=== PATIENT | female | born 1965 | race Caucasian/White ===

== ENCOUNTER 2024-10-19 09:27 | Emergency (ER) | payer OTHER, SELFPAY ==
[2024-10-19 09:42] VITALS: BP 109/67
[2024-10-19 10:02] LABS: % Basophils 0.4 % (0-2); % Eosinophils 0.6 % (0-6); % Immature Granulocytes 0.2 % (0-0.5); % Monocytes 6.8 % (1.7-9.3); Absolute Eosinophils 0.1 10^3/uL (0-0.7); Absolute Lymphocytes 2.2 10^3/uL (1.2-3.4); Absolute Monocytes 0.6 10^3/uL (0.1-0.6); Hematocrit 40.9 % (37.0-47.0); Hemoglobin 13.7 g/dL (12.0-16.0); Mean Corp Hgb Conc. 33.5 g/dL (33.0-37.0); Mean Corpuscular Hgb 28.6 pg (27.0-31.0); Mean Corpuscular Volume 85.4 fL (81.0-99.0); Mean Platelet Volume 9.2 fL (7.4-10.4); Nucleated Red Blood Cells % 0 %; Platelet Count 278 10^3/uL (130-400); Red Blood Cell Count 4.79 10^6/uL (4.20-5.40); Red Cell Dist. Width 13.2 % (11.5-14.5); White Blood Cell Count 8.9 10^3/uL (4.8-10.8)
[2024-10-19 10:17] LABS: Urine Albumin 2+ (Neg - Trace); Urine Bilirubin Negative (Negative); Urine Character Clear (Clear); Urine Color Yellow; Urine Glucose Negative (Negative); Urine Ketone 1+ (Negative); Urine Leukocyte 3+ (Negative); Urine Nitrite Negative (Negative); Urine Occult Blood 3+ (Negative); Urine Urobilinogen Negative (Neg - 1+)
[2024-10-19 10:18] LABS: ALT (SGPT) 24 U/L (0-35); AST (SGOT) 23 U/L (14-36); Albumin 4.3 g/dl (3.5-5.0); Alkaline Phosphatase 65 U/L (38-126); Blood Urea Nitrogen 22 mg/dl (7-17); Calcium 9.9 mg/dl (8.4-10.2); Carbon Dioxide 32 mmol/L (22-30); Chloride 104 mmol/L (98-107); Glucose 94 mg/dl (70-99); Potassium 4.2 mmol/L (3.5-5.1); Sodium 140 mmol/L (135-145); Total Bilirubin 0.6 mg/dl (0.2-1.3); Total Protein 7.3 g/dl (6.3-8.2); eGFR > 60.00
--- NOTE | 2024-10-19 10:44 | ED.GENMED ---
History of Present Illness
General
Chief Complaint: Urinary Symptoms
Source: patient
Exam Limitations: none
Time Seen by Provider: 10/19/24 10:34
History of Present Illness
History of Present Illness:
Patient treated for a UTI at the end of August. Was on Bactrim. Apparently the culture showed no sensitivity to the sulfas and was changed to Macrodantin. Finished this a week ago. Had 1 tablet left however. Recurring burning urgency frequency
started early this morning. However also developed some vague bilateral lower back pain. No nausea vomiting melena. Had some transient nausea earlier. No fever chills now but had some transient chills earlier. Did take 1 Macrodantin this
morning that she had leftover
Past History
Past History
ED Past Medical History: Other (UTI/kidney stones)
ED Past Surgical History: None
Review of Systems
Review of Systems
All Other Systems: Not applicable
Constitutional: Denies fever
ABD/GI: Reports no symptoms
Phy Exam
Physical Exam
Physical Exam:
GENERAL: Alert and oriented in no apparent distress
EYE: Orbits normal.
NECK: Supple
CARDIAC: Regular rate and rhythm without any obvious murmurs.
LUNGS: Clear breath sounds,normal
ABDOMEN: Soft, without focal tenderness or distention. No CVA tenderness
NEUROLOGICAL: Alert and oriented , grossly non-focal
SKIN: Warm and dry, no rash or lesion, no discoloration, skin intact.
MUSCULOSKELETAL: No edema,no deformity.Good color. Patient points to her lower back bilaterally more than over the costovertebral angle.
PSYCH: Normal and appropriate interaction.
Course
Orders/Labs/Results
Orders:
Orders
10/19/24 09:54
Complete Blood Count/With Diff Urgent
Comprehensive Metabolic Panel Urgent
Urinalysis Reflex To Culture Urgent
Date Specimen was Collected: 10/19/24
Time Specimen was Collected: 09:42
Urine Microscopic Reflex Cult Urgent
Urine Culture Urgent
SALAZAR Source: U
Specimen Description:
Date Specimen was Collected: 10/19/24
Time Specimen was Collected: 09:42
10/19/24 10:34
CT Abd/pel Without Iv Or Oral Urgent
Comment:
Reason For Exam: Back pain/recurrent UTI
Abnormal Lab Results
10/19/24
09:54
Carbon Dioxide 32 H mmol/L
(22-30)
BUN 22 H mg/dl
(7-17)
Urine Ketones 1+ A
(Negative)
Ur Occult Blood Reflex 3+ A
(Negative)
Leukocyte Esterase Rfl 3+ A
(Negative)
Urine RBC 11-15 A /HPF
(0-2)
Urine WBC (Reflex) >100 A /HPF
(0-5)
Urine Bacteria (Reflex) Few A
(Negative)
Urine Albumin (Reflex) 2+ A
(Neg - Trace)
10/19/24 09:54
10/19/24 09:54
Vital Signs
Initial and Last Documented VS:
Initial Vital Signs
Temp Pulse Resp BP Pulse Ox
98.2 F 71 18 109/67 95
10/19/24 09:42 10/19/24 09:42 10/19/24 09:42 10/19/24 09:42 10/19/24 09:42
Last Documented Vital Signs
Temp Pulse Resp BP Pulse Ox
98.2 F 71 18 109/67 95
10/19/24 09:42 10/19/24 09:42 10/19/24 09:42 10/19/24 09:42 10/19/24 09:42
MDM/Problems Addressed
Differential Diagnosis Includes:
Recurrent UTI. Will check sensitivities. Check CT scan for obstructing kidney stone. Clinically nontoxic and stable.
*Radiology
Radiology exam reviewed: radiology read reviewed (No acute findings on CT)
*Pulse Oximetry
Patient hypoxic: no
*Critical Care Note
Total Time (30-74mins, 75-104mins- exclusive of procedures): Not Applicable
Update Note
Update Note:
Patient nontoxic in no distress. No acute findings on labs and CT. Your urine remains positive. Will cover for UTI/early pyelonephritis. Clinically very nontoxic. Sensitive to Cipro. Enterococcus on her previous infection. There may be few
bacteria because she took a nitrofurantoin this morning.
ED Attending Note
-
Portions of this chart may have been created with voice recognition software.� Occasional wrong word or��sound alike� substitutions may have occurred due to the inherent limitations of voice recognition software.
Discharge Plan
Departure
Patient Disposition: Home (Routine Discharge)
Date of Disposition: 10/19/24
Time of Disposition: 13:23
Patient with high blood pressure during this ER visit?: Yes
Discharge Problem:
Recurrent UTI, Early pyelonephritis
Prescriptions:
New
ciprofloxacin HCl [Cipro] 500 mg tablet
500 mg PO BID Qty: 14 0RF
No Action
pantoprazole [Protonix] 40 mg tablet,delayed release (DR/EC)
40 mg PO DAILY Qty: 60 0RF
Referrals:
Adam Fernandez MD [Active] -
Arin Patiño DO [Active] - Next open appointment
Zach Chahal DO [Family Provider] - Follow up in 2-3 days
Activity Restrictions/Additional Instructions:
Return with increased pain fever vomiting chills.
Call urology for follow-up
Interventions
Interventions:
*Risk Screen - Suicide Last Done: 10/19/24 09:38
*General Assessment Last Done: 10/19/24 09:38
ED-Female Genitourinary Assessment Last Done: 10/19/24 10:57
Discharge Date and Time
Print Language: [id number]
[2024-10-19 11:18] LABS: Urine White Cell >100 /HPF (0-5)
[2024-10-19 11:19] LABS: Urine Bacteria Few (Negative)
[2024-10-19] MEDS: CIPRO 500 MG PO (13:38)
[2024-10-19 13:41] VITALS: BP 110/68
== END 2024-10-19 14:21 | disposition home or self-care (01) ==
LOC: EMR 09:27
PROVIDERS: Emergency Medicine; EMERGENCY PHYSICIAN Emergency Medicine; FAMILY PHYSICIAN Family Medicine
DX: N12 Tubulo-interstitial nephritis, not specified as acute or chronic (principal); M54.50 Low back pain, unspecified; Z87.440 Personal history of urinary (tract) infections
CPT/HCPCS: 99284; 74176; 80053; 81003; 81015; 85025; 87086